=== PATIENT | female | born 2005 | race Caucasian/White ===

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

== ENCOUNTER 2024-08-22 11:17 | Emergency (ER) | payer OTHER ==
[~2024-08-22] VITALS: Ht 162.6 cm; Wt 75.0 kg
[2024-08-22 11:26] VITALS: TEMP 98.2
[2024-08-22] MEDS ORDERED: IBUP-1492 PO (12:39)
[2024-08-22] MEDS ORDERED: CEPH-558 PO (12:39)
[2024-08-22] MEDS: CEPHALEXIN MONOHYDRATE 500 MG CAPSULE PO ONE (12:44)
[2024-08-22] MEDS: BACITRACIN 0.9 GM PACKET OINTMENT TP ONE (12:44)
[2024-08-22 13:09] VITALS: BP 117/69; PULSE 64; RESP 18; O2SAT 100
== END 2024-08-22 13:44 | disposition home or self-care (01) ==
LOC: EMS 11:17
DX: S91.351A Open bite, right foot, initial encounter (principal); W54.0XXA Bitten by dog, initial encounter; Y93.89 Activity, other specified; Y92.89 Other specified places as the place of occurrence of the external cause; Y99.8 Other external cause status
CPT/HCPCS: 99283